=== PATIENT | female | born 1970 | race African-American/Black ===

== ENCOUNTER 2018-03-16 21:46 | Emergency (ER) | payer MEDICAID, OTHER ==
[~2018-03-16] VITALS: Ht 167.6 cm; Wt 75.8 kg
[~2018-03-16 21:46] MED LIST: AMIODIPINE PO; CITA10SO PO; LORA-250 PO; QUET300T2 PO; SIMVASTATIN PO; [UNRECOGNIZED DRUG - OTHER]
[2018-03-16] MEDS ORDERED: ASPIRIN 81MG TABLET PO ONE (23:00)
[2018-03-16 23:34] LABS: CHLORIDE 105 mEq/L (98-107)
[2018-03-16 23:35] LABS: BASOPHILS % 0.8 % (0.0-2.0); EOSINOPHILS % 0.7 % (0.0-5.0); HEMATOCRIT. 42.6 % (36.0-48.0); HEMOGLOBIN. 14.4 g/dL (12.0-16.0); LYMPHOCYTES % 28.8 % (20.0-50.0); MEAN CORPUSCULAR HEMOGLOBIN 30.8 pg (28.0-32.0); MEAN CORPUSCULAR VOLUME 91.1 fL (81.0-99.0); MONOCYTES % 14.7 % (2.0-8.0); PLATELET 297 x1000/uL (130-400); RED BLOOD CELL COUNT 4.68 mill/uL (4.2-5.4); RED CELL DISTRIBUTION WIDTH 13.4 % (11.6-14.6)
[2018-03-16 23:39] LABS: ETHANOL BLOOD < 10 mg/dL
[2018-03-16 23:45] LABS: HCG SCREEN NEGATIVE
[2018-03-16 23:48] LABS: CREATINE KINASE MB FRACTION 1.3 ng/mL (0.5-3.6)
[2018-03-16 23:55] LABS: CLARITY URINE CLOUDY (CLEAR); COLOR URINE YELLOW (YELLOW); KETONES URINE NEGATIVE (NEGATIVE); LEUKOCYTE ESTERASE URINE 1+ (NEGATIVE); NITRITE URINE NEGATIVE (NEGATIVE); OCCULT BLOOD URINE 1+ (NEGATIVE); PH URINE 5.5 (4.5-8.0); PROTEIN URINE TRACE (NEGATIVE); SPECIFIC GRAVITY URINE 1.025 (1.005-1.030); UROBILINOGEN URINE 0.2 E.U./dL (0.2-1.0)
[2018-03-17 00:07] LABS: METHADONE URINE SCREEN NEGATIVE (NEGATIVE); OPIATES URINE SCREEN NEGATIVE (NEGATIVE); PHENCYCLIDINE URINE SCREEN NEGATIVE (NEGATIVE)
[2018-03-17 00:08] LABS: *AMPHETAMINES SCREEN URINE NEGATIVE (NEGATIVE); *BARBITURATES SCREEN URINE NEGATIVE (NEGATIVE); *BENZODIAZEPINES SCREEN URINE NEGATIVE (NEGATIVE); *COCAINE SCREEN URINE NEGATIVE (NEGATIVE)
[2018-03-17 00:20] LABS: CANNABINOID URINE SCREEN PRESUMTIVE POSITIVE (NEGATIVE)
[2018-03-17 04:57] VITALS: BP 141/90
== END 2018-03-17 05:00 | disposition home or self-care (01) ==
LOC: ER 21:46
DX: R07.89 Other chest pain (principal); I10 Essential (primary) hypertension; E78.00 Pure hypercholesterolemia, unspecified; F12.90 Cannabis use, unspecified, uncomplicated; F17.210 Nicotine dependence, cigarettes, uncomplicated; F32.9 Major depressive disorder, single episode, unspecified; F41.9 Anxiety disorder, unspecified
CPT/HCPCS: 36415; 71045; 80053; 80305; 81003; 81025; 82553; 83690; 83880; 84484; 84703; 85025; 93005; 99284; G0482

== ENCOUNTER 2018-03-25 11:44 | Emergency (ER) | payer MEDICAID ==
[~2018-03-25] VITALS: Ht 167.6 cm; Wt 76.0 kg
[2018-03-25 11:52] VITALS: BP 142/100
== END 2018-03-25 15:00 | disposition left against medical advice (07) ==
LOC: ER 12:53
DX: Z53.21 Procedure and treatment not carried out due to patient leaving prior to being seen by health care provider (principal)

== ENCOUNTER 2019-05-02 10:52 | Emergency (ER) | payer MEDICAID ==
[~2019-05-02] VITALS: Ht 167.6 cm; Wt 78.0 kg
[2019-05-02] MEDS ORDERED: KETOROLAC 30MG/ML VIAL IV ONE (12:00)
[2019-05-02 12:17] LABS: BASOPHILS % 0.3 % (0.0-2.0); EOSINOPHILS % 1.9 % (0.0-5.0); HEMATOCRIT. 40.2 % (36.0-48.0); HEMOGLOBIN. 13.9 g/dL (12.0-16.0); LYMPHOCYTES % 38.4 % (20.0-50.0); MEAN CORPUSCULAR HEMOGLOBIN 30.6 pg (28.0-32.0); MEAN CORPUSCULAR VOLUME 88.5 fL (81.0-99.0); MEAN PLATELET VOLUME 6.5 fl (7.4-10.4); MONOCYTES % 12.6 % (2.0-8.0); NEUTROPHILS % 46.8 % (40.0-76.0); PLATELET 259 x1000/uL (130-400); RED BLOOD CELL COUNT 4.54 mill/uL (4.2-5.4); RED CELL DISTRIBUTION WIDTH 13.4 % (11.6-14.6)
[2019-05-02 12:20] LABS: CHLORIDE 107 mEq/L (98-107)
[2019-05-02 12:27] LABS: ETHANOL BLOOD < 10 mg/dL
[2019-05-02 12:35] LABS: HCG SCREEN NEGATIVE
[2019-05-02 13:07] LABS: CREATINE KINASE 127 IU/L (26-192)
[2019-05-02 13:08] LABS: CREATINE KINASE MB FRACTION < 1.0 ng/mL (0.5-3.6)
[2019-05-02 13:23] LABS: METHADONE URINE SCREEN NEGATIVE (NEGATIVE)
[2019-05-02 13:24] LABS: *AMPHETAMINES SCREEN URINE NEGATIVE (NEGATIVE); *BARBITURATES SCREEN URINE NEGATIVE (NEGATIVE); *COCAINE SCREEN URINE NEGATIVE (NEGATIVE); OPIATES URINE SCREEN NEGATIVE (NEGATIVE); PHENCYCLIDINE URINE SCREEN NEGATIVE (NEGATIVE)
[2019-05-02 13:30] LABS: *BENZODIAZEPINES SCREEN URINE PRESUMTIVE POSITIVE (NEGATIVE); CANNABINOID URINE SCREEN PRESUMTIVE POSITIVE (NEGATIVE)
[2019-05-02 14:05] VITALS: BP 142/94
== END 2019-05-02 14:40 | disposition home or self-care (01) ==
LOC: ER 10:52
DX: S29.8XXA Other specified injuries of thorax, initial encounter (principal); F41.9 Anxiety disorder, unspecified; E78.00 Pure hypercholesterolemia, unspecified; I10 Essential (primary) hypertension; F12.10 Cannabis abuse, uncomplicated; Z90.49 Acquired absence of other specified parts of digestive tract; W01.0XXA Fall on same level from slipping, tripping and stumbling without subsequent striking against object, initial encounter; Y93.89 Activity, other specified; Y92.89 Other specified places as the place of occurrence of the external cause
CPT/HCPCS: 36415; 71045; 71120; 80053; 80305; 80320; 81025; 82550; 82553; 83690; 83880; 84484; 84703; 85025; 93005; 96374; 99285; J1885; G0480